=== PATIENT | female | born 1940 | race Caucasian/White ===

== ENCOUNTER 2016-12-01 17:11 | Emergency (ER) | payer MEDICARE, OTHER ==
[2016-12-01] MEDS ORDERED: Adacel Vial IM ONE ×2 (17:27→17:54)
--- NOTE | 2016-12-01 17:30 | ERPHSYRPT ---
- History of Present Illness Time Seen by Provider: 12/01/16 17:28 Source: patient Exam Limitations: no limitations Physician History: 76 y/o female comes to the ER after tripping and falling this afternoon. Pt says that she landed on her right hand, cutting her right third finger. Pt also landed on her right breast and admits to some soreness. Pt does not remember the last time she had her tetanus shot. Pt denies any chest pain, dizziness, shortness of breath or palpitations. Occurred: just prior to arrival Method of Injury: fell Allergies/Adverse Reactions: No Known Drug Allergies Allergy (Verified 12/01/16 17:34) Home Medications: Alendronate Sodium 70 mg [Fosamax 70 MG] 70 mg PO WEEKLY 09/23/12 [History ] Ca Citrate/Mgox/Vit D3/B6/Min [Citracal Plus Tablet] 1 each PO DAILY 09/23/12 [ History] Furosemide 20 mg PO DAILY 09/23/12 [History] Lisinopril 10 mg [Zestril 10 MG] 10 mg PO DAILY 09/23/12 [History] Naproxen [Naprosyn] 500 mg PO DAILY 09/23/12 [History] Phenobarb 32.4 mg [Phenobarbital 32.4 mg] 64.8 mg PO DAILY 09/23/12 [ History] Phenytoin Sod Extended 100 mg* [Dilantin 100 MG] 100 mg PO DAILY 09/23/12 [ History] Potassium Chloride 10 Meq Tab* [Klor Con 10 MEQ] 10 meq PO DAILY 09/23/12 [ History] Hx Tetanus, Diphtheria Vaccination/Date Given: No Hx Influenza Vaccination/Date Given: Yes (DEC 2011) Hx Pneumococcal Vaccination/Date Given: No - Review of Systems Constitutional: No Fever, No Chills Eyes: No Symptoms Ears, Nose, & Throat: No Symptoms Respiratory: No Cough, No Dyspnea Cardiac: No Chest Pain, No Edema, No Syncope Abdominal/Gastrointestinal: No Abdominal Pain, No Nausea, No Vomiting, No Diarrhea Genitourinary Symptoms: No Dysuria Musculoskeletal: No Back Pain, No Neck Pain Skin: Other (laceration), No Rash Neurological: No Dizziness, No Focal Weakness, No Sensory Changes Psychological: No Symptoms Endocrine: No Symptoms All Other Systems: Reviewed and Negative - Past Medical History Neurological History: Seizures ENT History: No Pertinent History Cardiac History: Hypertension Respiratory History: No Pertinent History Endocrine Medical History: Hypothyroidism Musculoskeletal History: Osteoarthritis GI Medical History: No Pertinent History History: No Pertinent History Psycho-Social History: No Pertinent History Female Reproductive Disorders: No Pertinent History Other Medical History: R TKA IN 2011. - Past Surgical History Past Surgical History: Yes Neuro Surgical History: No Pertinent History Cardiac: No Pertinent History Respiratory: No Pertinent History Gastrointestinal: Appendectomy Musculoskeletal: Orthopedic Surgery Female Surgical History: Tubal Ligation - Social History Smoking Status: Former smoker Exposure to second hand smoke: No Drug Use: none Patient Lives Alone: No - Female History Hx Now: No - Nursing Vital Signs Nursing Vital Signs: Initial Vital Signs Temperature 97.8 F 12/01/16 17:14 Pulse Rate 90 12/01/16 17:14 Respiratory Rate 18 12/01/16 17:14 Blood Pressure 107/42 12/01/16 17:14 O2 Sat by Pulse Oximetry 100 12/01/16 17:14 Pain Scale Pain Intensity 3 - Physical Exam General Appearance: alert Eyes, Ears, Nose, Throat Exam: moist mucous membranes Neck Exam: non-tender, supple Cardiovascular/Respiratory Exam: chest non-tender, normal breath sounds, regular rate/rhythm, no respiratory distress Abdominal Exam: non-tender, No guarding Back Exam: normal inspection, No vertebral tenderness Hand Exam: laceration, No asymmetry, No bone tenderness Neuro/Tendon Exam: normal sensation, normal motor functions Mental Status Exam: alert, oriented x 3, cooperative Skin Exam: normal color, warm, dry SpO2 Interpretation: normal Procedures - Laceration/Wound Repair Right Upper Anterior Medial Proximal Volar Finger Wound Location: Right Wound Length (cm): 2 Wound's Depth, Shape: superficial Wound Explored: clean Irrigated: Yes Hibiclens Prep: Yes Anesthesia: 2% Lidocaine Volume Anesthetic (ccs): 5 Wound Debrided: moderate Wound Repaired With: sutures Suture Size/Type: 5-0, ethilon Number of Sutures: 6 Layer Closure?: Yes - Course Nursing assessment & vital signs reviewed: Yes Ordered Tests: Active Orders 24 hr Category Date Time Status Wound Care STAT Care 12/01/16 17:31 Active FINGER(S) Stat Exams 12/01/16 Taken Medication Summary Discontinued Medications Generic Name Dose Route Start Last Admin Trade Name Freq PRN Reason Stop Dose Admin Diphtheria/Tetanus/Acell Pertussis 0.5 ml 12/01/16 17:27 12/01/16 17:59 Adacel Vial IM 12/01/16 17:28 0.5 ml .ONCE ONE Administration Diphtheria/Tetanus/Acell Pertussis Confirm 12/01/16 17:54 Adacel Vial Administered 12/01/16 17:55 Dose 0.5 ml IM .STK-MED ONE - Progress Progress: improved Progress Note: 12/01/16 18:51 See Procedure Note. - Departure Time of Disposition: 18:52 Departure Disposition: Home Clinical Impression: Finger laceration Qualifiers: Encounter type: initial encounter Finger: middle finger Damage to nail status: without damage Foreign body presence: without foreign body Laterality: right Qualified Code(s): S61.212A - Laceration without foreign body of right middle finger without damage to nail, initial encounter Condition: Stable Critical Care Time: No Referrals: AMARA LOVELL [Primary Care Provider] - Instructions: Laceration Repair -- Finger Additional Instructions: You will need to have the stitches removed in 7 days.
[2016-12-01 18:46] VITALS: BP 165/71
[2016-12-01 19:05] VITALS: PULSE 80; O2SAT 165
--- NOTE | 2016-12-02 08:57 | XRAY ---
Indication: Laceration following fall. Comparison: None 3 views of the right third finger demonstrates proximal posterior focal soft tissue swelling/laceration and mild osteopenia. No other bony, articular, or soft tissue abnormalities.
== END 2016-12-01 19:08 | disposition home or self-care (01) ==
LOC: ED 17:11
PROC: 0HQFXZZ Repair Right Hand Skin, External Approach (ICD-10-PCS; principal; 2016-12-01)
DX: S61.212A Laceration without foreign body of right middle finger without damage to nail, initial encounter (principal); W01.0XXA Fall on same level from slipping, tripping and stumbling without subsequent striking against object, initial encounter; W45.8XXA Other foreign body or object entering through skin, initial encounter; Z79.899 Other long term (current) drug therapy; I10 Essential (primary) hypertension
CPT/HCPCS: 12001; 73140; 90471; 90715; 96372; 99283